=== PATIENT | male | born 1945 | race Caucasian/White ===

== ENCOUNTER → 2018-12-20 09:54 | Outpatient (CLI) | payer MEDICARE, MEDICAID, SELFPAY ==
[2018-12-20 10:50] LABS: Cholesterol 301 mg/dL (140-199); HDL Cholesterol 48 mg/dL (40-60); LDL Cholesterol Calculated 195 mg/dL (<100); Triglycerides 292 mg/dL (35-150)
== END ==
PROVIDERS: PCP Family Medicine; Visit Provider Family Medicine
DX: E78.00 Pure hypercholesterolemia, unspecified (principal)
CPT/HCPCS: 36415; 80061

== ENCOUNTER → 2018-12-20 09:57 | Outpatient (CLI) | payer MEDICARE, MEDICAID, SELFPAY ==
--- NOTE | 2018-12-20 | DI.US.S_ITS ---
PROCEDURE: US CAROTID DOPPLER BI INDICATIONS: OCCLUSION AND STENOSIS OF BILATERAL CAROTID ARTERY TECHNIQUE: Color and pulse Doppler interrogation was performed of both carotid systems, with image documentation and velocity measurements. COMPARISON: [facility], , CAROTID ARTERY DOPPLER BILAT, 07/10/2016, 10:59. FINDINGS: Stenosis calculations are based on SRU (Society of Radi[employer] in Ultrasound) criteria. Right side: Brachial blood pressure: 118/70 mm Hg. Common carotid artery peak systolic velocity: 136 cm/sec (previously, 82 cm/s). Internal carotid artery peak systolic velocity: 167 cm/sec. (Previously 144 cm/s) Internal carotid artery end diastolic velocity: 37 cm/sec. (Previously 39 cm/s) External carotid artery peak systolic velocity: 147 cm/sec. (Previously 112 cm/s) ICA/CCA peak systolic ratio: 1.22 (previously 1.76) Hunter scale imaging description: There is extensive bilateral hard plaque. At the level of the proximal ICA, there is stenosis which is greater than 50%. Percent internal carotid artery stenosis: 50-69% by velocity criteria. Vertebral artery: Flow direction is antegrade. Left side: Brachial blood pressure: 123/65 mm Hg. Common carotid artery peak systolic velocity: 91 cm/sec. (Previously 95 cm/s) Internal carotid artery peak systolic velocity: 361 cm/sec. ( Previously 190 cm/s) Internal carotid artery end diastolic velocity: 94 cm/sec. (Previously 43 cm/s) External carotid artery peak systolic velocity: 104 cm/sec. (Previously 137 cm/s) ICA/CCA peak systolic ratio: 3.99 (previously 2.0) Hunter scale imaging description: There are multiple locations of hard plaque present. Calcified stenosis at the proximal internal carotid artery obscures visualization of stenosis by grayscale and Percent internal carotid artery stenosis: Progressive since the prior study, 70% or greater by velocity criteria Vertebral artery: Flow direction is antegrade. SRU Consensus Criteria DELETE FROM FINAL REPORT * Normal: ICA PSV <125 cm/s, ICA EDV <40 cm/s, no plaque, ICA/CCA <2.0. * <50%: ICA PSV <125 cm/s, ICA EDV <40 cm/s, <50% diameter reducing plaque, ICA/CCA <2.0. * 50-69%: ICA PSV 125-230 cm/s, ICA EDV 40-100 cm/s, 50% or more diameter reducing plaque, ICA/CCA 2.0-4.0. * 70% to near occlusion: >230 cm/s, ICA EDV >100 cm/s, 50% or more diameter reducing plaque, ICA/CCA >4.0 * Near occlusion: low or non detectable PSV, variable EDV, ICA/CCA ratio. IMPRESSION: 1. 50-69% right internal carotid artery stenosis again noted 2. Interval progression of left internal carotid artery stenosis, now 70% or greater by velocity criteria Comment: CT angiography of the neck may be helpful to quantify left internal carotid artery stenosis by NASCET criteria Dictated by: Cruzito Porter M.D. on 12/20/2018 at 13:58 Approved by: Cruzito Porter M.D. on 12/20/2018 at 14:15
== END ==
PROVIDERS: PCP Family Medicine; Visit Provider Internal Medicine Cardiovascular Disease
DX: I65.23 Occlusion and stenosis of bilateral carotid arteries (principal); E78.00 Pure hypercholesterolemia, unspecified
CPT/HCPCS: 36415; 80061; 93880